=== PATIENT | male | born 1965 | race Caucasian/White ===

== ENCOUNTER 2021-03-20 11:41 | Observation (INO) | payer OTHER ==
[~2021-03-20] VITALS: Ht 180.3 cm; Wt 90.3 kg
[2021-03-20 13:18] LABS: HEMOGLOBIN 15.1 gm/dl (14.0-17.5); RED BLOOD COUNT 5.1 M/UL (4.20-5.50); WHITE BLOOD COUNT 5.8 K/UL (4.5-11.0)
[2021-03-20 13:43] LABS: BUN/CREATININE RATIO 25 (0-10)
[2021-03-20] MEDS ORDERED: IBUPROFEN800 MG PO (20:22)
[2021-03-20] MEDS ORDERED: GABAPENTIN800 MG PO (20:22)
[2021-03-20] MEDS ORDERED: FREESTYLE LANC1 EACH MC (20:23)
[2021-03-20] MEDS ORDERED: BANOPHEN25 MG PO (20:23)
[2021-03-20] MEDS ORDERED: ASPIRIN EC81 MG PO (20:26)
[2021-03-20] MEDS ORDERED: AMIODARONE HCL200 MG PO (20:26)
[2021-03-20] MEDS ORDERED: ATORVASTATIN CA40 MG PO (20:26)
[2021-03-20] MEDS ORDERED: XARELTO20 MG PO (20:27)
[2021-03-20] MEDS ORDERED: METFORMIN HCL1000 MG PO (20:27)
[2021-03-20] MEDS ORDERED: LISINOPRIL10 MG PO (20:27)
[2021-03-20] MEDS ORDERED: FUROSEMIDE80 MG PO (20:27)
[2021-03-20] MEDS ORDERED: ATROVENT-HFA12.9 GM INH (20:28)
[2021-03-20] MEDS ORDERED: TAMSULOSIN HCL0.4 MG PO (20:30)
[2021-03-21 07:07] LABS: RED BLOOD COUNT 5.04 M/UL (4.20-5.50); WHITE BLOOD COUNT 5.8 K/UL (4.5-11.0)
[2021-03-21 10:30] LABS: BUN/CREATININE RATIO 32 (0-10)
[2021-03-21 12:05] LABS: ADENOVIRUS F 40/41 Not Detected (Negative); ASTROVIRUS Not Detected (Negative); CAMPYLOBACTER Not Detected (Negative); CLOSTRIDIUM DIFFICILE TOX A/B Not Detected (Negative); CRYPTOSPORIDIUM Not Detected (Negative); E.COLI 0157 Not Detected (Negative); ENTAMOEBA HISTOLYTICA Not Detected (Negative); ENTEROAGGREGATIVE E.COLI (EAEC Not Detected (Negative); ENTEROPATHOGENIC E.COLI (EPEC) Not Detected (Negative); ENTEROTOXIGENIC E.COLI (ETEC) Not Detected (Negative); GIARDIA LAMBLIA Not Detected (Negative); NOROVIRUS GI/GII Not Detected (Negative); PLESIOMONAS SHIGELLOIDES Not Detected (Negative); ROTOVIRUS A Not Detected (Negative); SALMONELLA Not Detected (Negative); SHIG/ENTEROINVAS.ECOLI (EIEC) Not Detected (Negative); SHIGA-LIK TOX.PRO.E.COLI (STEC Not Detected (Negative); VIBRIO Not Detected (Negative); VIBRIO CHOLERAE Not Detected (Negative); YERSINIA ENTEROCOLITICA Not Detected (Negative)
[2021-03-21 15:13] LABS: SAPOVIRUS DETECTED (Negative)
[2021-03-21 17:16] LABS: BUN/CREATININE RATIO 28 (0-10)
[2021-03-22 03:43] LABS: BUN/CREATININE RATIO 24 (0-10)
[2021-03-22] MEDS ORDERED: SODIUM BICARBO650 M1 PO (08:41)
== END 2021-03-22 11:08 | disposition home or self-care (01) ==
LOC: ER1 11:41 → CDU 18:58 → M/S 18:58
PROVIDERS: Physician Assistant Medical; ADMIT Internal Medicine
DX: K94.19 Other complications of enterostomy (principal); B97.89 Other viral agents as the cause of diseases classified elsewhere; N17.9 Acute kidney failure, unspecified; E87.1 Hypo-osmolality and hyponatremia; E83.42 Hypomagnesemia; E87.2 Acidosis; I48.0 Paroxysmal atrial fibrillation; E11.9 Type 2 diabetes mellitus without complications; C18.9 Malignant neoplasm of colon, unspecified; E27.8 Other specified disorders of adrenal gland; N28.1 Cyst of kidney, acquired; F17.210 Nicotine dependence, cigarettes, uncomplicated; F31.9 Bipolar disorder, unspecified; R45.851 Suicidal ideations; G40.909 Epilepsy, unspecified, not intractable, without status epilepticus; I10 Essential (primary) hypertension; J45.909 Unspecified asthma, uncomplicated; Z20.822 Contact with and (suspected) exposure to COVID-19; Z88.1 Allergy status to other antibiotic agents; Z79.84 Long term (current) use of oral hypoglycemic drugs; Z91.040 Latex allergy status; Z79.82 Long term (current) use of aspirin; Z79.01 Long term (current) use of anticoagulants; Z79.899 Other long term (current) drug therapy
CPT/HCPCS: 36415; 36600; 71045; 80048; 80053; 80307; 81001; 82009; 82550; 82553; 82803; 82962; 83605; 83690; 83735; 83874; 83880; 84484; 85025; 85027; 87045; 87046; 87507; 93005; 96365; 99285; G0378; G0480; J3475; J7030; U0002

== ENCOUNTER → 2021-03-25 | Outpatient (CLI) | payer OTHER ==
[~2021-03-25] MED LIST: AMIODARONE HCL200 MG PO; ASPIRIN EC81 MG PO; ATORVASTATIN CA40 MG PO; ATROVENT-HFA12.9 GM INH; BANOPHEN25 MG PO; FREESTYLE LANC1 EACH MC; FUROSEMIDE80 MG PO; GABAPENTIN800 MG PO; IBUPROFEN800 MG PO; LISINOPRIL10 MG PO; METFORMIN HCL1000 MG PO; SODIUM BICARBO650 M1 PO; TAMSULOSIN HCL0.4 MG PO; XARELTO20 MG PO
[2021-03-25 17:37] LABS: BUN/CREATININE RATIO 11 (0-10)
== END ==
LOC: LAB 16:56
PROVIDERS: Internal Medicine
DX: E87.1 Hypo-osmolality and hyponatremia (principal)
CPT/HCPCS: 80048